=== PATIENT | female | born 1960 | race Caucasian/White ===

== ENCOUNTER 2016-12-29 16:17 | Emergency (ER) | payer BC ==
[~2016-12-29] VITALS: Ht 160 cm; Wt 65.9 kg
[~2016-12-29 16:17] MED LIST: NO MEDS
[2016-12-29] MEDS ORDERED: SOD CHLORIDE 0.9% 1,000 ML IV STA (16:27)
[2016-12-29] MEDS ORDERED: ONDANSETRON 4 MG INJ IV STA ×2 (16:27→17:44)
[2016-12-29] MEDS ORDERED: FAMOTIDINE 20 MG INJ IV STA (16:27)
[2016-12-29] MEDS ORDERED: morphine 4 MG/ML VIAL IV STA (16:27)
[2016-12-29 16:43] VITALS: Ht 160 cm; Wt 65.9 kg
[2016-12-29 16:46] LABS: HEMATOCRIT 44.4 % (37.0-47.0); HEMOGLOBIN 15.3 g/dl (12.0-16.0); MEAN CORPUSCULAR HEMOGLOBIN 30.7 pg (29.0-33.0); MEAN CORPUSCULAR HGB CONC 34.5 g/dl (32.0-37.0); MEAN PLATELET VOLUME 10.6 fl (7.4-10.4); PLATELET COUNT 246 10^3/UL (140-415); RED BLOOD COUNT 4.99 10^6/ul (4.20-5.40); RED CELL DISTRIBUTION WIDTH 12.6 % (11.5-14.5); WHITE BLOOD COUNT 10.5 10^3/ul (4.8-10.8)
[2016-12-29 17:01] LABS: ALBUMIN 5.3 g/dl (3.3-4.9); ALBUMIN/GLOBULIN RATIO 1.39; BILIRUBIN,INDIRECT 0.6 mg/dl (0-1.1); BILIRUBIN,TOTAL 0.6 mg/dl (0.2-1.3); CALCIUM 12.1 mg/dl (8.4-10.2); CREATININE 0.92 mg/dl (0.44-1.00); POTASSIUM 3.9 mmol/L (3.5-5.1); TOTAL PROTEIN 9.1 g/dl (6.1-8.1)
[2016-12-29 17:07] LABS: MONOCYTE # 0.3 10^3/ul (0.3-0.9); NEUTROPHIL # 8.2 10^3/ul (1.6-7.5)
[2016-12-29 17:30] LABS: ADD UMIC YES; UR AMORPHOUS CRYSTAL FEW /HPF (NONE SEEN); UR ASCORBIC ACID NEGATIVE (NEGATIVE); UR BILIRUBIN (Dip) NEGATIVE (NEGATIVE); UR BLOOD (Dip) 1+ mg/dL (NEGATIVE); UR CLARITY CLOUDY (CLEAR); UR COLOR YELLOW (YELLOW); UR GLUCOSE (Dip) NEGATIVE (NEGATIVE); UR KETONES (Dip) 1+ mg/dL (NEGATIVE); UR LEUKOCYTE ESTERASE (Dip) NEGATIVE Leu/ul (NEGATIVE); UR NITRITE (Dip) NEGATIVE (NEGATIVE); UR RBC 13 /HPF (0-5); UR SPECIFIC GRAVITY (Dip) 1.012 (1.003-1.030); UR TOTAL PROTEIN (Dip) NEGATIVE (NEGATIVE); UR UROBILINOGEN (Dip) NEGATIVE (NEGATIVE)
[2016-12-29] MEDS ORDERED: KETOROLAC 30 MG INJ IV STA (17:42)
--- NOTE | 2016-12-29 18:04 | RADRPT ---
PROCEDURE: CT Abdomen and Pelvis without contrast. CLINICAL INDICATION: Left flank and lower abdominal pain. TECHNIQUE: CT scan of the abdomen and pelvis without contrast was performed on a multidetector hig h-resolution CT scanner. The patient was scanned without intravenous contrast. Coronal and sagittal reformatted images were obtained from the axial source images. Images were reviewed on a high-resol [employer] PACS workstation. The total exam CTDI equals 7.83 mGy and the total exam DLP equals 399.13 mGy -cm. One or the following dose reduction techniques were used: -Automated exposure control. -Adjustment of the mA and/or KV according to patient's size. -Use of iterative reconstruction technique. COMPARISON: None. FINDINGS: Lung Bases: Unremarkable. GI:. Unremarkable. Liver: Liver is normal in size with a decrease in attenuation suggesting diffuse steatosis. Gallbladder: Unremarkable. Pancreas: Unremarkable. Spleen: Unremarkablel Adrenals: Unremarkable. Kidneys: There is bilateral nephrolithiasis. There is mild pyelocaliectasis and ureterectasis on th e right with a 4 mm calculus in the distal ureter in the bladder wall. Bladder: Unremarkable. Pelvic Organs: Unremarkable. Skeleton: Normal for age. Other: There is a tiny umbilical hernia containing fat. IMPRESSION: 1. Bilateral nephrolithiasis with mild pyelocaliectasis and ureterectasis on the right secondary to a partially obstructing 4 mm calculus at the distal right ureteral vesicle junction in the bladder w all. 2. Decreased attenuation in the liver consistent with diffuse steatosis. 3. Normal appearing appendix visualized. 4. Small umbilical hernia containing fat only. 5. Minimal scattered colonic diverticulosis without evidence of acute diverticulitis. RPTAT: [facility] Physician Mikaela Date Time Electronically viewed and signed by Physician Mikaela on 12/29/2016 18:04 TIAN/
--- NOTE | 2016-12-29 18:11 | ERD ---
ER Documentation Chief Complaint Date/Time DATE: 12/29/16 TIME: 18:08 Chief Complaint LOWER ABDOMINAL PAIN WITH N/V AND DYSURIA SINCE THIS MORNING HPI This is a 56-year-old female who presents to the emergency room for evaluation of abdominal pain, nausea and vomiting. The patient also states that she has some mild painful urination. Patient localizes her abdominal pain to the lower portion of the abdomen states is worse with urination. She denies any fevers associated with this and denies any chills or vaginal discharge or vaginal bleeding. She came to the emergency room for evaluation and is denying any relieving factors for her symptoms. ROS All systems reviewed and are negative except as per history of present illness. Medications Home Meds Discontinued Reported Medications [No Meds] No Conflict Check 06/07/13 Allergies Allergies: Coded Allergies: No Known Drug Allergy (Verified Allergy, Mild, 12/29/16) PMhx/Soc History of Surgery: Yes (ELBOW SX & TUBAL LIGATION) Anesthesia Reaction: No Hx Neurological Disorder: No Hx Respiratory Disorders: No Hx Cardiac Disorders: Yes (HYPERLIPIDEMIA) Hx Psychiatric Problems: No Hx Miscellaneous Medical Probl: No Hx Alcohol Use: No Hx Substance Use: No Hx Tobacco Use: No Smoking Status: Never smoker Physical Exam Vitals Vital Signs Date Time Temp Pulse Resp B/P Pulse Ox O2 Delivery O2 Flow Rate FiO2 12/29/16 17:51 76 16 138/73 100 Nasal Cannula 2.0 12/29/16 16:43 97.9 75 19 162/90 100 Physical Exam INITIAL VITAL SIGNS: Reviewed by me GENERAL: The patient is well developed and appropriate for usual state of health in no apparent distress HEENT: Pupils equal, round, and reactive to light. EOMI. There is no scleral icterus. NECK: C-spine is soft and supple, there is no meningismus. There is no cervical lymphadenopathy. LUNGS: Clear to auscultation bilaterally. There are no rales, wheezes or rhonchi. HEART: Regular rate and rhythm, no murmurs, clicks, rubs or gallops. ABDOMEN: Right-sided CVAT, suprapubic tenderness to palpation, otherwise soft, non-tender, non-distended. There are bowel sounds in all four quadrants. No rebound or guarding. EXTREMITIES: There is no peripheral cyanosis or edema. No focal swelling or erythema. NEUROLOGICAL: The patient moves all four extremities with 5/5 strength. Cranial nerves II - XII are intact. Normal gait. Alert and oriented SKIN: There is no apparent rash or petechiae. HEME/LYMPHATIC: There is no evidence of excessive bruising or lymphedema. PSYCHIATRIC: The patient does not appear anxious or depressed. Result Diagram: 12/29/16 1630 12/29/16 1630 Results 24 hrs Laboratory Tests Test 12/29/16 16:30 12/29/16 17:00 White Blood Count 10.510^3/ul Red Blood Count 4.9910^6/ul Hemoglobin 15.3g/dl Hematocrit 44.4% Mean Corpuscular Volume 89.0fl Mean Corpuscular Hemoglobin 30.7pg Mean Corpuscular Hemoglobin Concent 34.5g/dl Red Cell Distribution Width 12.6% Platelet Count 52987^3/UL Mean Platelet Volume 10.6fl Neutrophils % 78.0% Lymphocytes % 19.0% Monocytes % 3.0% Neutrophils # 8.210^3/ul Lymphocytes # 2.010^3/ul Monocytes # 0.310^3/ul Sodium Level 142mmol/L Potassium Level 3.9mmol/L Chloride Level 106mmol/L Carbon Dioxide Level 22mmol/L Anion Gap 18 Blood Urea Nitrogen 17mg/dl Creatinine 0.92mg/dl Glucose Level 110mg/dl Calcium Level 12.1mg/dl Total Bilirubin 0.6mg/dl Direct Bilirubin 0.00mg/dl Indirect Bilirubin 0.6mg/dl Aspartate Amino Transf (AST/SGOT) 30IU/L Alanine Aminotransferase (ALT/SGPT) 33IU/L Alkaline Phosphatase 127IU/L Total Protein 9.1g/dl Albumin 5.3g/dl Globulin 3.80g/dl Albumin/Globulin Ratio 1.39 Lipase 140U/L Urine Color YELLOW Urine Clarity CLOUDY Urine pH 9.0 Urine Specific [place] 1.012 Urine Ketones 1+mg/dL Urine Nitrite NEGATIVEmg/dL Urine Bilirubin NEGATIVEmg/dL Urine Urobilinogen NEGATIVEmg/dL Urine Leukocyte Esterase NEGATIVELeu/ul Urine Microscopic RBC 13/HPF Urine Microscopic WBC 2/HPF Urine Amorphous Crystals FEW/HPF Urine Hemoglobin 1+mg/dL Urine Glucose NEGATIVEmg/dL Urine Total Protein NEGATIVEmg/dl Current Medications Medications (Trade) Dose Ordered Sig/Lars Route PRN Reason Start Time Stop Time Status Last Admin Dose Admin Sodium Chloride (NS) 1,000 ml @ 1,000 mls/hr Q1H STAT IV 12/29/16 16:27 12/29/16 17:26 DC 12/29/16 16:54 Morphine Sulfate (morphine) 4 mg ONCE STAT IV 12/29/16 16:27 12/29/16 16:28 DC 12/29/16 16:54 Ondansetron HCl (Zofran Inj) 4 mg ONCE STAT IV 12/29/16 16:27 12/29/16 16:28 DC 12/29/16 16:54 Famotidine (Pepcid Iv) 20 mg ONCE STAT IV 12/29/16 16:27 12/29/16 16:28 DC 12/29/16 16:54 Ketorolac Tromethamine (Toradol) 30 mg ONCE STAT IV 12/29/16 17:42 12/29/16 17:43 DC 12/29/16 17:48 Ondansetron HCl (Zofran Inj) 4 mg ONCE STAT IV 12/29/16 17:44 12/29/16 17:45 DC 12/29/16 17:48 Procedures/MDM CT abdomen pelvis without: 1. Bilateral nephrolithiasis with mild pyelocaliectasis and ureterectasis on the right secondary to a partially obstructing 4 mm calculus at the distal right ureteral vesicle junction in the bladder wall. 2. Decreased attenuation in the liver consistent with diffuse steatosis. 3. Normal appearing appendix visualized. 4. Small umbilical hernia containing fat only. 5. Minimal scattered colonic diverticulosis without evidence of acute diverticulitis. This 56-year-old female presents to the emergency room for evaluation of abdominal pain, flank pain, dysuria, nausea and vomiting. On examination she did have right-sided CVAT and suprapubic tenderness to palpation. The patient did appear to be in mild distress secondary from pain. Lab work was obtained including a urinalysis which does show blood in the urine. Given the patient's flank pain with blood in the urine I did obtain a CAT scan which did confirm my suspicion of ureterolithiasis on the right. The patient is afebrile, no significant sign of infection in the urine. Her pain is controlled with morphine and Toradol here in the emergency room. She will be discharged home at this time with a prescription for Flomax, [place] for breakthrough pain, and a referral for outpatient urology. The patient and the patient's son are okay with her plan of care and advised him to return immediately to the ER if they develop any worsening symptoms and they verbalized understanding. Departure Diagnosis: Primary Impression: Ureterolithiasis Additional Impression: Bilateral kidney stones Condition: Stable LIZ SEPULVEDA DO Dec 29, 2016 18:11
[2016-12-29] MEDS ORDERED: HYDR-906 PO (18:12)
[2016-12-29] MEDS ORDERED: TAMS-14 PO (18:12)
[2016-12-29 18:34] VITALS: BP 108/63; PULSE 74; RESP 16; TEMP 98
== END 2016-12-29 18:53 | disposition home or self-care (01) ==
LOC: E/R 16:17
DX: N20.2 Calculus of kidney with calculus of ureter (principal); R11.2 Nausea with vomiting, unspecified
CPT/HCPCS: 74176; 80053; 81001; 83690; 85025; J1885; J2270; J2405; J7030; Z7610; 36415; 96374; 96375; 96376

== ENCOUNTER 2017-05-30 12:13 | Emergency (ER) | payer BC ==
[~2017-05-30] VITALS: Ht 160 cm; Wt 64.7 kg
[~2017-05-30 12:13] MED LIST changes: +HYDR-906 PO; -NO MEDS; +TAMS-14 PO
[2017-05-30 12:22] VITALS: Ht 160 cm; Wt 64.7 kg
[2017-05-30] MEDS ORDERED: ACETAMINOPHEN 500 MG TAB PO STA (13:40)
--- NOTE | 2017-05-30 14:38 | RADRPT ---
PROCEDURE: XR Left Ankle. CLINICAL INDICATION: Left ankle pain. TECHNIQUE: 3 views. Frontal, lateral, and oblique. COMPARISON: None. FINDINGS: There is no fracture or dislocation. The soft tissues are normal. Articular surfaces are intact. There is a plantar calcaneal spur. There is no lytic or blastic lesion. There is no radiopaque foreign body. IMPRESSION: 1. Plantar calcaneal spur. 2. Otherwise unremarkable images of the left ankle. RPTAT: QQ .Ricki Pepper MD, MD Date Time Electronically viewed and signed by .Ricki Pepper MD, on 05/30/2017 14:38 .R/
[2017-05-30] MEDS ORDERED: ACET500C5 PO (14:55)
--- NOTE | 2017-05-30 15:09 | ERD ---
ER Documentation Chief Complaint Chief Complaint MECHANICAL FALL LEFT ANKLE SPRAIN WALKING WITH LIMP HPI 56-year-old female presents with left medial ankle pain after an eversion injury about a week and a half ago. The patient states that she slipped and her foot went outward causing an eversion injury. She has localized left medial ankle pain, is worse with weightbearing and better at rest, the pain is mild, she has no difficulty with ambulation. ROS All systems reviewed and are negative except as per history of present illness. Medications Home Meds Active Scripts Acetaminophen* (Tylophen*) 500 Mg Capsule, 1 CAP PO Q6H Y for PAIN AND OR ELEVATED TEMP, #20 CAP Prov:LISA ATKINSON PA-C 05/30/17 Tamsulosin Hcl* (Flomax*) 0.4 Mg Cap.er.24h, 0.4 MG PO HS for 7 Days, CAP Prov:LIZ SEPULVEDA DO 12/29/16 Hydrocodone/Acetaminophen ([place] 5-325 Tablet) 1 Each Tablet, 1 EACH PO Q6 for 5 Days, TAB Prov:LIZ SEPULVEDA DO 12/29/16 Allergies Allergies: Coded Allergies: No Known Drug Allergy (Verified Allergy, Mild, 12/29/16) PMhx/Soc History of Surgery: Yes (ELBOW SX & TUBAL LIGATION) Anesthesia Reaction: No Hx Neurological Disorder: No Hx Respiratory Disorders: No Hx Cardiac Disorders: Yes (HYPERLIPIDEMIA) Hx Psychiatric Problems: No Hx Miscellaneous Medical Probl: No Hx Alcohol Use: No Hx Substance Use: No Hx Tobacco Use: No Smoking Status: Never smoker Physical Exam Vitals Vital Signs Date Time Temp Pulse Resp B/P Pulse Ox O2 Delivery O2 Flow Rate FiO2 05/30/17 12:22 98.5 90 18 149/84 97 Physical Exam General: Well-developed, well-nourished. The patient appears in no acute distress. HEENT: Head is normocephalic, atraumatic. No scleral icterus. Neck: Supple. Nontender. Lungs: Clear to auscultation. Normal air movement. Heart: Regular rate and rhythm. S1 and S2 are normal. No murmurs, gallops, or rubs. Abdomen: Nondistended. Extremities: There is no swelling to the left ankle or foot, there is tenderness over the anterior portion of the left medial ankle, no tenderness over the lateral or medial malleolus. She has full range of motion with left ankle flexion dorsiflexion, DP pulses 2+ bilaterally. The foot is nontraumatic , nontender. There is no tenderness over the tibia, or the fibula. Negative Homans sign. Neurologic: Alert and oriented 3. No focal deficits. Normal speech and gait. Skin: Normal turgor. No rash or lesions. Results 24 hrs Current Medications Medications (Trade) Dose Ordered Sig/Lars Route PRN Reason Start Time Stop Time Status Last Admin Dose Admin Acetaminophen (Tylenol Tab) 500 mg ONCE STAT PO 05/30/17 13:40 05/30/17 13:42 DC 05/30/17 13:57 DIAGNOSTIC IMAGING REPORT Patient: MERCY REZA : 1960 Age: 56 Sex: F MR #: [id number] DOS: 05/30/17 1340 Ordering MD: LISA ATKINSON PA-C Location: [facility] Room/Bed: PROCEDURE: XR Left Ankle. CLINICAL INDICATION: Left ankle pain. TECHNIQUE: 3 views. Frontal, lateral, and oblique. COMPARISON: None. FINDINGS: There is no fracture or dislocation. The soft tissues are normal. Articular surfaces are intact. There is a plantar calcaneal spur. There is no lytic or blastic lesion. There is no radiopaque foreign body. IMPRESSION: 1. Plantar calcaneal spur. 2. Otherwise unremarkable images of the left ankle. RPTAT: QQ .Ricki Pepper MD, Date Time Electronically viewed and signed by .Ricki Pepper MD, on 05/30/2017 14:38 .R/ CC: LISA ATKINSON PA-C Procedures/MDM The left ankle was wrapped in Kevin bandage. Splint Assessment: Neurovascularly intact post splint placement with good fit. Medical decision makin-year-old female comes in with left medial ankle pain , patient has normal x-rays of the left ankle, her history includes trauma which was an eversion of her ankle, most consistent with an ankle sprain. There are no signs of dislocation, DVT, cellulitis, or limb threatening process. The patient will be given Tylenol because she states that she becomes sensitive to pain medication, and will be advised to rest, ice and elevate the area. Departure Diagnosis: Primary Impression: Left ankle sprain Condition: Good Patient Instructions: Treating Ankle Sprains Additional Instructions: Llame al doctor MAANA y dori chelsie CROW PARA DENTRO DE 1-2 BOX.Dgale a la secretaria que nosotros le instruimos hacer esta crow.Avise o llame si laurent condicin se empeora antes de la crow. Regresa aqui si peor o no mejor. LISA ATKINSON PA-C May 30, 2017 15:09
== END 2017-05-30 16:00 | disposition home or self-care (01) ==
LOC: FTE 12:13
DX: S93.402A Sprain of unspecified ligament of left ankle, initial encounter (principal); W18.39XA Other fall on same level, initial encounter; Y92.9 Unspecified place or not applicable
CPT/HCPCS: 73610; 99283; Z7610

== ENCOUNTER 2017-07-01 19:32 | Emergency (ER) | END 2017-07-01 20:15 | disposition left against medical advice (07) ==

== ENCOUNTER 2018-11-20 11:56 | Emergency (ER) | payer BC ==
[~2018-11-20] VITALS: Wt 64.0 kg
[~2018-11-20 11:56] MED LIST changes: +ACET500C5 PO; +HYDR-4011 PO; -HYDR-906 PO
[2018-11-20] MEDS ORDERED: morphine 4 MG/ML VIAL IV STA (12:39)
[2018-11-20] MEDS ORDERED: KETOROLAC 15 MG INJ IV STA (13:42)
[2018-11-20] MEDS ORDERED: IBUP-1542 PO (14:41)
[2018-11-20] MEDS ORDERED: HYDR-4011 PO (14:41)
[2018-11-20] MEDS ORDERED: TAMS-14 PO (14:41)
--- NOTE | 2018-11-20 14:42 | ERD ---
ER Documentation Chief Complaint Chief Complaint left side abd pain radiating to left flank for a few hrs. hxof renal colic HPI 57-year-old female with a history of right-sided kidney stones presenting with left-sided abdominal pain that radiates to the left flank. Her pain started this morning. She has not had any associated hematuria or dysuria. She has had episodes of nonbloody and nonbilious vomiting. The pain is constant, severe, sh indira, 9 out of 10. No associated diarrhea or constipation. She states this feels exactly like her kidney stones she has had in the past but on the left side now. She never followed up with a specialist like advised. ROS All systems reviewed and are negative except as per history of present illness. Medications Home Meds Active Scripts Tamsulosin Hcl* (Flomax*) 0.4 Mg Cap.er.24h, 0.4 MG PO QPM, #30 CAP Prov:ITALO RINCON MD 11/20/18 Ibuprofen* (Motrin*) 600 Mg Tab, 600 MG PO Q6H PRN for PAIN AND OR ELEVATED TEMP, #30 TAB Prov:ITALO RINCON MD 11/20/18 Hydrocodone/Acetaminophen ([place] 5-325 Tablet) 1 Each Tablet, 1 TAB PO Q6H PRN for SEVERE PAIN LEVEL 7-10, #10 TAB Prov:ITALO RINCON MD 11/20/18 Discontinued Scripts Acetaminophen* (Tylophen*) 500 Mg Capsule, 1 CAP PO Q6H PRN for PAIN AND OR ELEVATED TEMP, #20 CAP Prov:LISA ATKINSON PA-C 05/30/17 Tamsulosin Hcl* (Flomax*) 0.4 Mg Cap.er.24h, 0.4 MG PO HS for 7 Days, CAP Prov:LIZ SEPULVEDA DO 12/29/16 Hydrocodone/Acetaminophen ([place] 5-325 Tablet) 1 Each Tablet, 1 EACH PO Q6 for 5 Days, TAB Prov:LIZ SEPULVEDA DO 12/29/16 Allergies Allergies: Coded Allergies: No Known Drug Allergy (Verified Allergy, Mild, 11/20/18) PMhx/Soc History of Surgery: Yes (ELBOW SX & TUBAL LIGATION) Anesthesia Reaction: No Hx Neurological Disorder: No Hx Respiratory Disorders: No Hx Cardiac Disorders: Yes (HYPERLIPIDEMIA) Hx Psychiatric Problems: No Hx Miscellaneous Medical Probl: No Hx Alcohol Use: No Hx Substance Use: No Hx Tobacco Use: No FmHx Family History: No diabetes Physical Exam Vitals Vital Signs Date Temp Pulse Resp B/P (MAP) Pulse Ox O2 O2 Flow FiO2 Time Delivery Rate 11/20/18 98.3 73 18 127/71 98 Room Air 15:01 (89) 11/20/18 98.1 83 18 140/73 98 12:28 (95) Physical Exam Const: in apparent distress secondary to pain, tearful, writhing around in bed and pain Head: Atraumatic Eyes: Normal Conjunctiva ENT: Normal External Ears, Nose and Mouth. Neck: Full range of motion. No meningismus. Resp: Clear to auscultation bilaterally Cardio: Regular rate and rhythm, no murmurs Abd: Soft, non tender, non distended. Normal bowel sounds Skin: No petechiae or rashes Back: Mild left CVA tenderness. Ext: No cyanosis, or edema Neur: Awake and alert Psych: Normal Mood and Affect Results 24 hrs Laboratory Tests Test 11/20/18 13:20 Urine Color YELLOW Urine Clarity SLIGHTLY CLOUDY Urine pH 8.0 Urine Specific [place] 1.014 Urine Ketones 1+ mg/dL Urine Nitrite NEGATIVE mg/dL Urine Bilirubin NEGATIVE mg/dL Urine Urobilinogen NEGATIVE mg/dL Urine Leukocyte Esterase NEGATIVE Jose A/ul Urine Microscopic RBC 32 /HPF Urine Microscopic WBC 4 /HPF Urine Squamous Epithelial Cells FEW /HPF Urine Mucus FEW /HPF Urine Hemoglobin 1+ mg/dL Urine Glucose NEGATIVE mg/dL Urine Total Protein 1+ mg/dl Current Medications Medications Dose Sig/Lars Start Time Status Last (Trade) Ordered Route PRN Stop Time Admin Dose Reason Admin Morphine 4 mg ONCE STAT 11/20/18 DC 11/20/18 Sulfate IV 12:39 12:45 (morphine) 11/20/18 12:41 Ketorolac 15 mg ONCE STAT 11/20/18 DC 11/20/18 Tromethamine IV 13:42 13:57 (Toradol) 11/20/18 13:43 Procedures/MDM EMERGENT LABS AND DIAGNOSTIC STUDIES: Lab Results above were reviewed and interpreted by me. UA: Microscopic hematuria noted. No evidence of infection Radiology Results as interpreted by Radiology below were reviewed by Sara Rincon MD: Renal ultrasound shows left-sided mild to moderate hydronephrosis with stones in the kidney. Bladder normal Initial Nursing notes reviewed. Previous Medical Records requested via the Electronic Health Record. EMERGENCY DEPARTMENT COURSE / MEDICAL DECISION MAKING: Patient is presenting with most likely left renal colic secondary to obstructing stone. Vitals are unremarkable. No evidence of pyelonephritis. She was treated with morphine and Toradol with resolution of her symptoms. Feel the patient stable for discharge. She had a recent CT abdomen 2 years ago, so I do not feel repeat CT is necessary. She was given a strainer to urinate with and recommended follow-up with our urologist for which contact information was given. She will be discharged with [place], ibuprofen, and tamsulosin. Return precautions discussed. Patient's blood pressure was elevated (>120/80) but appears stable without evidence of hypertensive emergency or urgency. The patient was counseled about the risks of hypertension and urged to pursue outpatient monitoring and therapy within a week with their primary care physician. Departure Diagnosis: Primary Impression: Renal colic on left side Additional Impression: Hydronephrosis Hydronephrosis type: unspecified Qualified Codes: N13.30 - Unspecified hydronephrosis Condition: Stable Patient Instructions: Hydronephrosis Adult, Kidney Stone W/ Colic Referrals: BUTCH BARRIOS MD, NELLIE R. MD November 20, 2018 14:42
[2018-11-20 16:08] VITALS: BP 118/79; PULSE 69; RESP 18
== END 2018-11-20 16:11 | disposition home or self-care (01) ==
LOC: E/R 11:56
DX: N13.30 Unspecified hydronephrosis (principal)
CPT/HCPCS: 76775; 81001; 96374; 96375; 99285; J1885; J2270

== ENCOUNTER 2019-02-25 22:20 | Emergency (ER) | payer BC ==
[~2019-02-25] VITALS: Ht 152.4 cm; Wt 66.0 kg
[~2019-02-25 22:20] MED LIST changes: +BENZ1LOZ52 MM; +IBUP-1542 PO
[2019-02-25 22:25] VITALS: Ht 152.4 cm; Wt 66.0 kg
[2019-02-25] MEDS ORDERED: ACETAMINOPHEN 500 MG TAB PO STA (23:35)
[2019-02-25] MEDS ORDERED: KETOROLAC 30 MG INJ IM STA (23:53)
[2019-02-26 00:27] VITALS: BP 154/71; PULSE 71; RESP 17
== END 2019-02-26 00:34 | disposition home or self-care (01) ==
LOC: FTE 22:20
DX: J02.9 Acute pharyngitis, unspecified (principal); M62.838 Other muscle spasm
CPT/HCPCS: 96372; 99284; J1885; Z7610